=== PATIENT | male | born 1980 | race Hispanic/Latino ===

== ENCOUNTER 2018-08-29 10:32 | Outpatient (CLI) | payer BC ==
--- NOTE | 2018-08-29 12:45 | ULT ---
ABDOMINAL ULTRASOUND: 08/29/2018 PROVIDED CLINICAL HISTORY: Elevated liver function tests. FINDINGS: The visualized abdominal aorta, IVC, and pancreas appear normal. The liver demonstrates increased ec hogenicity, compatible with fatty infiltration, without evidence for mass or intrahepatic biliary kaylah robert dilatation. The common duct is not dilated. The gallbladder demonstrates no stones, wall thicke dayna, or pericholecystic fluid. The kidneys demonstrate no hydronephrosis or mass. The spleen is no t enlarged and demonstrates no focal abnormality. IMPRESSION: Fatty infiltration of the liver. POS: [facility]
== END 2018-08-29 10:33 | disposition home or self-care (01) ==
LOC: SCSULT 10:32
PROVIDERS: ATTEND Family Medicine
DX: R74.8 Abnormal levels of other serum enzymes (principal); K76.0 Fatty (change of) liver, not elsewhere classified
CPT/HCPCS: 36415; 76700; 80076

== ENCOUNTER 2018-09-13 15:25 | Outpatient (CLI) | payer BC ==
--- NOTE | 2018-09-16 09:50 | MRI ---
MRI BRAIN AND INTERNAL AUDITORY CANALS: Date: 09/13/18 HISTORY: Asymmetric sensorineural hearing loss. COMPARISON: None. FINDINGS: Calvarium has a normal T1 marrow signal intensity. Midline brain parenchymal structures are unremarka ble. No parenchymal mass, mass effect, or midline shift. Brain volume, age-appropriate. Cortical diaz-whit e matter differentiation preserved. Ventricles and sulci are patent and symmetric. No significant T2 or FLAIR white matter hyperintensities. Central arterial flow-voids are maintained. Absent restricted diffusion. Minimal mucosal thickening of the paranasal sinuses. No pathologic enhancement of the brain parenchyma. Adequate mastoid air cell aeration. There is no abnormal enhancement in either inner ear structure or either 7th/8th cranial nerve complex. Additionally, bilateral 5th cranial nerve complexes are approp riate in signal intensity. IMPRESSION: 1. Unremarkable pre and postcontrast brain MRI. 2. Unremarkable pre and postcontrast MRI of the internal auditory canals. POS: [facility]
== END 2018-09-13 15:26 | disposition home or self-care (01) ==
LOC: SCSMRI 15:25
PROVIDERS: ATTEND Otolaryngology Plastic Surgery within the Head & Neck
DX: H90.5 Unspecified sensorineural hearing loss (principal)
CPT/HCPCS: 70553